=== PATIENT | female | born 1955 | race Caucasian/White ===

== ENCOUNTER 2017-10-19 22:15 | Emergency (ER) | payer MEDICAID ==
[~2017-10-19] VITALS: Ht 157.5 cm; Wt 50.0 kg
[2017-10-19 22:35] VITALS: BP 98/62
[2017-10-19] MEDS ORDERED: famotidine 20mg tablet PO ONE (23:45)
[2017-10-19] MEDS ORDERED: predniSONE 20 mg tablet PO ONE (23:45)
[2017-10-19] MEDS ORDERED: METH4TAB81 PO (23:48)
[2017-10-19] MEDS ORDERED: FAMO-128 PO (23:48)
[2017-10-19] MEDS ORDERED: DIPH-423 PO (23:48)
== END 2017-10-19 23:56 | disposition home or self-care (01) ==
LOC: ER 22:15
DX: L50.9 Urticaria, unspecified (principal)
CPT/HCPCS: 99283; J7512; 99281

== ENCOUNTER 2018-06-25 16:08 | Emergency (ER) | payer MEDICAID ==
[~2018-06-25] VITALS: Ht 157.5 cm; Wt 50.0 kg
[~2018-06-25 16:08] MED LIST: DIPH-423 PO; FAMO-128 PO; METH4TAB81 PO
[2018-06-25 16:25] VITALS: BP_SYST 63
[2018-06-25] MEDS ORDERED: NAPR-56 PO (16:56)
--- NOTE | 2018-06-25 17:11 | NUR ---
pt seen and dc'd by provider
== END 2018-06-25 17:11 | disposition home or self-care (01) ==
LOC: ER 16:09
DX: S46.912A Strain of unspecified muscle, fascia and tendon at shoulder and upper arm level, left arm, initial encounter (principal); Z79.899 Other long term (current) drug therapy; X58.XXXA Exposure to other specified factors, initial encounter; Y93.89 Activity, other specified; Y92.511 Restaurant or cafe as the place of occurrence of the external cause; Y99.0 Civilian activity done for income or pay
CPT/HCPCS: 99282

== ENCOUNTER 2018-07-01 17:54 | Emergency (ER) | payer MEDICAID ==
[~2018-07-01] VITALS: Ht 157.5 cm; Wt 47.7 kg
[~2018-07-01 17:54] MED LIST changes: +NAPR-56 PO
[2018-07-01 19:19] LABS: URINE HCG NEGATIVE (NEG)
[2018-07-01 19:32] LABS: CLARITY,URINE CLEAR (Clear); COLOR,URINE YELLOW (Yellow); GLUCOSE, URINE NEGATIVE (Neg); KETONES,URINE NEGATIVE (Neg); LEUKOCYTE ESTERASE ,URINE NEGATIVE (Neg); NITRITES, URINE NEGATIVE (Neg); OCCULT BLOOD,URINE NEGATIVE (Neg); PH,URINE 7.5 (4.8-8.0); PROTEIN,URINE NEGATIVE (Neg); UROBILINOGEN,URINE 0.2 E.U/dL (0.2-1.0)
[2018-07-01 19:34] LABS: UA COLLECTION TYPE CLN CATCH MIDSTREAM
[2018-07-01 19:35] LABS: BASOPHILS % (AUTO) 0.4 % (0-1); EOSINOPHILS % (AUTO) 0.4 % (0-6); HEMATOCRIT 37.9 % (35.0-45.0); HEMOGLOBIN 13.2 g/dl (12.0-16.0); LYMPHOCYTES # (AUTO) 1.1 X10'3 (1.1-4.8); LYMPHOCYTES % (AUTO) 16.2 % (21-51); MEAN CORPUSCULAR HEMOGLOBIN 32.3 PG (27.0-31.0); MEAN CORPUSCULAR HGB CONC 34.7 g/dL (33.0-36.5); MEAN CORPUSCULAR VOLUME 92.9 FL (78-98); MEAN PLATELET VOLUME 7.8 FL (7.4-10.4); MONOCYTES # (AUTO) 0.5 X10'3 (0-0.9); MONOCYTES % (AUTO) 6.8 % (2-12); NEUTROPHILS # (AUTO) 5.3 X10'3 (1.8-7.7); NEUTROPHILS % (AUTO) 76.2 % (42-75); PLATELET COUNT 213 X10'3 (140-440); RED BLOOD COUNT 4.08 X10'6 (4.20-5.60); RED CELL DISTRIBUTION WIDTH 12.1 % (11.5-14.5); WHITE BLOOD COUNT 6.9 X10'3 (4.5-11.0)
[2018-07-01 19:48] LABS: ALANINE AMINOTRANSFERASE 17 U/L (12-78); ALBUMIN 3.7 G/DL (3.4-5.0); ALBUMIN/GLOBULIN RATIO 0.9 (1.1-1.5); ALKALINE PHOSPHATASE 100 IU/L (46-116); ANION GAP 5 (8-16); ASPARTATE AMINO TRANSFERASE 17 U/L (10-37); BILIRUBIN,TOTAL 0.3 MG/DL (0.1-1.0); BLOOD UREA NITROGEN 10 MG/DL (7-18); BUN/CREATININE RATIO 12.5 (6.6-38.0); CALCIUM 9.4 MG/DL (8.5-10.1); CHLORIDE 102 MMOL/L (99-107); GLUCOSE 92 MG/DL (70-104); LIPASE 123 U/L (73-393); POTASSIUM 3.5 MMOL/L (3.5-5.1); SODIUM 138 MMOL/L (135-145); TOTAL CARBON DIOXIDE 31.4 MMOL/L (24-32); TOTAL PROTEIN 7.6 G/DL (6.4-8.2); eGFR 72 ML/MIN
[2018-07-01 19:56] LABS: INR 0.9 INR; PROTHROMBIN TIME 9.3 SECONDS (9.0-12.0)
[2018-07-01 22:22] VITALS: BP 115/44
== END 2018-07-01 22:23 | disposition home or self-care (01) ==
LOC: ER 17:54
DX: R10.30 Lower abdominal pain, unspecified (principal); R10.84 Generalized abdominal pain; R19.7 Diarrhea, unspecified; Z79.899 Other long term (current) drug therapy
CPT/HCPCS: 36415; 74176; 80053; 81003; 81025; 83690; 85025; 85610; 99284

== ENCOUNTER 2018-12-04 18:40 | Emergency (ER) | payer MEDICARE, OTHER, MEDICAID ==
[~2018-12-04] VITALS: Ht 157.5 cm; Wt 50.0 kg
[~2018-12-04 18:40] MED LIST changes: -NAPR-56 PO
[2018-12-04 18:46] VITALS: BP 97/49
[2018-12-04 20:55] LABS: CLARITY,URINE CLEAR (Clear); COLOR,URINE YELLOW (Yellow); GLUCOSE, URINE NEGATIVE (Neg); KETONES,URINE NEGATIVE (Neg); LEUKOCYTE ESTERASE ,URINE MODERATE (Neg); NITRITES, URINE NEGATIVE (Neg); OCCULT BLOOD,URINE SMALL (Neg); PH,URINE 6.5 (4.8-8.0); PROTEIN,URINE NEGATIVE (Neg); UROBILINOGEN,URINE 0.2 E.U/dL (0.2-1.0)
[2018-12-04 20:57] LABS: UA COLLECTION TYPE CLN CATCH MIDSTREAM
[2018-12-04 21:08] LABS: RBC,URINE 0-2 /HPF (0-2)
[2018-12-04] MEDS ORDERED: FLUC150T66 PO (21:08)
[2018-12-04 21:09] LABS: BACTERIA,URINE NONE SEEN /HPF (Neg); SQUAMOUS EPITHELIAL CELL,UR NONE SEEN /LPF (FEW); WBC,URINE 20-30 /HPF (0-4)
[2018-12-04] MEDS ORDERED: fluconazole 150mg tablet PO ONE (21:10)
== END 2018-12-04 21:22 | disposition home or self-care (01) ==
LOC: ER 18:41
DX: B37.3 Candidiasis of vulva and vagina (principal); Z79.899 Other long term (current) drug therapy
CPT/HCPCS: 81001; 99283

== ENCOUNTER 2018-12-08 19:15 | Emergency (ER) | payer MEDICARE, MEDICAID, OTHER ==
[~2018-12-08] VITALS: Ht 157.5 cm; Wt 50.0 kg
[2018-12-08] MEDS ORDERED: FLUC150T PO (20:08)
[2018-12-08] MEDS ORDERED: MICO45CR11 VG (20:08)
--- NOTE | 2018-12-08 20:32 | NUR ---
pt seen and dc'd by provider
== END 2018-12-08 20:32 | disposition home or self-care (01) ==
LOC: ER 19:15
DX: N89.8 Other specified noninflammatory disorders of vagina (principal); Z79.899 Other long term (current) drug therapy
CPT/HCPCS: 99283

== ENCOUNTER 2019-04-16 16:37 | Emergency (ER) | payer MEDICARE, MEDICAID, OTHER ==
[~2019-04-16] VITALS: Ht 152.4 cm; Wt 47.0 kg
[2019-04-16 17:18] VITALS: BP 112/59
== END 2019-04-16 18:37 | disposition home or self-care (01) ==
LOC: ER 16:38
DX: M54.2 Cervicalgia (principal); M54.5 Low back pain; Z79.899 Other long term (current) drug therapy; V98.8XXA Other specified transport accidents, initial encounter; Y93.89 Activity, other specified; Y92.89 Other specified places as the place of occurrence of the external cause; Y99.8 Other external cause status
CPT/HCPCS: 99281

== ENCOUNTER 2021-04-23 14:32 | Emergency (ER) | payer BC, MEDICAID ==
[~2021-04-23] VITALS: Ht 154.9 cm; Wt 47.7 kg
[2021-04-23 15:09] VITALS: BP 84/57
[2021-04-23 15:47] LABS: BASOPHILS % (AUTO) 0.3 % (0-1); EOSINOPHILS % (AUTO) 0 % (0-6); HEMATOCRIT 39.6 % (35.0-45.0); HEMOGLOBIN 13.9 g/dl (12.0-16.0); LYMPHOCYTES # (AUTO) 0.5 X10'3 (1.1-4.8); LYMPHOCYTES % (AUTO) 7.1 % (21-51); MEAN CORPUSCULAR HEMOGLOBIN 32.1 PG (27.0-31.0); MEAN CORPUSCULAR HGB CONC 35.2 g/dL (33.0-36.5); MEAN CORPUSCULAR VOLUME 91.3 FL (78-98); MEAN PLATELET VOLUME 7.6 FL (7.4-10.4); MONOCYTES # (AUTO) 0.2 X10'3 (0-0.9); MONOCYTES % (AUTO) 3.8 % (2-12); NEUTROPHILS # (AUTO) 5.8 X10'3 (1.8-7.7); NEUTROPHILS % (AUTO) 88.8 % (42-75); PLATELET COUNT 192 X10'3 (140-440); RED BLOOD COUNT 4.34 X10'6 (4.20-5.60); RED CELL DISTRIBUTION WIDTH 12.3 % (11.5-14.5); WHITE BLOOD COUNT 6.5 X10'3 (4.5-11.0)
[2021-04-23 15:58] LABS: ALANINE AMINOTRANSFERASE 20 U/L (12-78); ALBUMIN 3.2 G/DL (3.4-5.0); ALBUMIN/GLOBULIN RATIO 0.7 (1.1-1.5); ALKALINE PHOSPHATASE 86 IU/L (46-116); ANION GAP 11 (8-16); ASPARTATE AMINO TRANSFERASE 48 U/L (10-37); BILIRUBIN,TOTAL 0.5 MG/DL (0.1-1.0); BLOOD UREA NITROGEN 14 MG/DL (7-18); BUN/CREATININE RATIO 17.9 (6.6-38.0); CALCIUM 8.8 MG/DL (8.5-10.1); CHLORIDE 96 MMOL/L (99-107); CREATININE 0.78 MG/DL (0.40-0.90); GLUCOSE 121 MG/DL (70-104); POTASSIUM 3.4 MMOL/L (3.5-5.1); SODIUM 134 MMOL/L (135-145); TOTAL CARBON DIOXIDE 26.8 MMOL/L (24-32); TOTAL PROTEIN 7.6 G/DL (6.4-8.2); eGFR 74 ML/MIN
[2021-04-23] MEDS ORDERED: CASIRIVIMAB/IMDEVIMAB inject. 10 ML in normal saline 100ml IV soln 100 ML IV ONE (16:25)
[2021-04-23] MEDS ORDERED: ALBU8HFA PO (17:20)
[2021-04-23] MEDS ORDERED: ACET-1025 PO (17:20)
== END 2021-04-23 17:51 | disposition home or self-care (01) ==
LOC: ER 14:33
DX: U07.1 COVID-19 (principal); J12.82 Pneumonia due to coronavirus disease 2019; R05.9 Cough, unspecified; R53.83 Other fatigue; Z79.899 Other long term (current) drug therapy
CPT/HCPCS: 36415; 71045; 80053; 85025; 87635; 99284; C9803; J3490; M0243; Q0244

== ENCOUNTER 2024-03-19 18:39 | Emergency (ER) | payer BC, MEDICAID ==
[~2024-03-19] VITALS: Ht 154.9 cm; Wt 45.4 kg
[2024-03-19 18:40] VITALS: BP 133/43; PULSE 86; TEMP 98.3; O2SAT 98
[2024-03-19 19:44] VITALS: RESP 18
== END 2024-03-19 19:56 | disposition home or self-care (01) ==
LOC: ER 18:40
DX: S20.214A Contusion of middle front wall of thorax, initial encounter (principal); Z79.899 Other long term (current) drug therapy; V89.2XXA Person injured in unspecified motor-vehicle accident, traffic, initial encounter; Y93.89 Activity, other specified; Y92.410 Unspecified street and highway as the place of occurrence of the external cause; Y99.8 Other external cause status
CPT/HCPCS: 71045; 93005; 99283

== ENCOUNTER 2024-05-09 12:19 | Emergency (ER) | payer BC, MEDICAID ==
[~2024-05-09] VITALS: Ht 154.9 cm; Wt 47.4 kg
[2024-05-09 12:24] VITALS: BP 131/67; PULSE 102; RESP 16; TEMP 98.6; O2SAT 99
[2024-05-09] MEDS ORDERED: CEPH-585 PO (13:32)
[2024-05-09] MEDS ORDERED: MUPI22OI30 TOP (13:32)
[2024-05-09] MEDS ORDERED: SULF1TAB49 PO (13:32)
== END 2024-05-09 13:49 | disposition home or self-care (01) ==
LOC: ER 12:20
DX: T81.41XA Infection following a procedure, superficial incisional surgical site, initial encounter (principal); Z79.899 Other long term (current) drug therapy
CPT/HCPCS: 99283

== ENCOUNTER 2024-05-13 14:16 | Emergency (ER) | payer BC, MEDICAID ==
[~2024-05-13] VITALS: Ht 154.9 cm; Wt 46.8 kg
[~2024-05-13 14:16] MED LIST changes: +CEPH-585 PO; +MUPI22OI30 TOP; +SULF1TAB49 PO
[2024-05-13 14:19] VITALS: BP 121/59; PULSE 97; RESP 18; O2SAT 99
== END 2024-05-13 16:47 | disposition home or self-care (01) ==
LOC: ER 14:17
DX: S01.81XD Laceration without foreign body of other part of head, subsequent encounter (principal); Z48.02 Encounter for removal of sutures; Z79.899 Other long term (current) drug therapy; X58.XXXD Exposure to other specified factors, subsequent encounter
CPT/HCPCS: 99281